=== PATIENT | female | born 1955 | race Caucasian/White ===

== ENCOUNTER → 2019-04-07 | Outpatient (REF) | payer OTHER ==
[2019-04-07 18:37] LABS: APPEARANCE, URINE CLEAR (CLEAR); BACTERIA, URINE AUTO NEGATIVE (NEGATIVE); BILIRUBIN, URINE AUTO NEGATIVE (NEGATIVE); BLOOD, URINE BLOOD NEGATIVE (NEGATIVE); COLOR, URINE YELLOW (YELLOW); GLUCOSE, URINE (UA) AUTO NEGATIVE (NEGATIVE); KETONE, URINE AUTO NEGATIVE (NEGATIVE); LEUKOCYTE ESTERASE, URINE AUTO NEGATIVE (NEGATIVE); MUCUS, URINE SMALL (NEGATIVE); NITRITE, URINE AUTO NEGATIVE (NEGATIVE); PROTEIN, URINE AUTO NEGATIVE (NEGATIVE); RBC, URINE AUTO 0 /HPF (0-3); SQUAMOUS EPITHELIAL CELL UR AU 1 /HPF (0-6); UROBILINOGEN, URINE AUTO 0.2 mg/dL (0.0-2.0); WBC, URINE AUTO 2 /HPF (0-3)
== END ==
LOC: M SMT 16:56
PROVIDERS: ATTEND Nurse Practitioner Women's Health
DX: R31.29 Other microscopic hematuria (principal)

== ENCOUNTER → 2019-10-27 | Outpatient (REF) | payer OTHER ==
[2019-10-27 17:39] LABS: APPEARANCE, URINE CLEAR (CLEAR); BACTERIA, URINE AUTO NEGATIVE (NEGATIVE); BILIRUBIN, URINE AUTO NEGATIVE (NEGATIVE); BLOOD, URINE BLOOD NEGATIVE (NEGATIVE); CALCIUM OXALATE CRYSTALS MODERATE; COLOR, URINE YELLOW (YELLOW); GLUCOSE, URINE (UA) AUTO NEGATIVE (NEGATIVE); KETONE, URINE AUTO NEGATIVE (NEGATIVE); LEUKOCYTE ESTERASE, URINE AUTO NEGATIVE (NEGATIVE); MUCUS, URINE SMALL (NEGATIVE); NITRITE, URINE AUTO NEGATIVE (NEGATIVE); PROTEIN, URINE AUTO NEGATIVE (NEGATIVE); RBC, URINE AUTO 8 /HPF (0-3); SPECIFIC GRAVITY URINE AUTO 1.021 (1.002-1.035); SQUAMOUS EPITHELIAL CELL UR AU 0 /HPF (0-6); UROBILINOGEN, URINE AUTO 0.2 mg/dL (0.0-2.0); WBC, URINE AUTO 2 /HPF (0-3)
== END ==
LOC: M SMT 15:17
PROVIDERS: ATTEND Nurse Practitioner Women's Health
DX: N39.0 Urinary tract infection, site not specified (principal)

== ENCOUNTER → 2020-04-19 | Outpatient (REF) | payer OTHER ==
[2020-04-29 17:08] LABS: CA Oxalate Dihy 90 % (.); Ca Ox Monohydrate 10 % (.); Size 7x4 mm (.)
== END ==
LOC: M SMT 15:31
PROVIDERS: ATTEND Nurse Practitioner Women's Health
DX: N20.0 Calculus of kidney (principal)

== ENCOUNTER → 2020-07-19 | Outpatient (CLI) | payer OTHER ==
--- NOTE | 2020-07-19 10:04 | REPPI ---
INDICATION: URETERAL CALCULUS COMPARISON: None. TECHNIQUE: Supine views of the abdomen and pelvis. FINDINGS: Bowel gas pattern is nonspecific and without obstruction or perforation. No organomegaly. Prior cholecystectomy. Calcifications in the pelvis consistent with phleboliths. Skeletal structures intact. No obvious urinary tract calcifications identified. IMPRESSION: 1. No obvious urinary tract calcifications appreciated. <Electronically signed by Sam Jefferson > 07/19/20 1000
== END ==
LOC: M PLAIMG 09:26
PROVIDERS: ATTEND Urology
DX: N20.1 Calculus of ureter (principal)

== ENCOUNTER 2020-07-20 17:46 | Day surgery (SDC) | payer OTHER ==
[~2020-07-20] VITALS: Ht 165.1 cm; Wt 79.1 kg
--- NOTE | 2020-07-20 18:28 | ED PDOC ---
Post-Departure Follow-Up pt not seen by ED provider. taken to OR by urology prior to ED provider exam. transfer from other facility. EPHRAIM ODELL [employer]IATE July 20, 2020 18:28
[2020-07-20] MEDS ORDERED: CONRAY-60 60% 50ML VIAL (Q9961) As Ordered ONE (18:29)
[2020-07-20] MEDS ORDERED: fentaNYL 100 MCG/2 ML INJECTION (J3010) As Ordered ONE (18:39)
--- NOTE | 2020-07-20 18:49 | SMCUROLCON ---
Urology Consultation General Date of Consultation 07/20/20 Reason For Consultation This patient is seen for Kidney Stones. History of Present Illness This is a 65 y/o F w/ a PMH significant for asthma, GERD, osteopenia, costochondritis, ALMA DELIA, HL, sarcoidosis, and kidney stones, presenting to the ER as a transfer from [facility] for intractable L sided pain from obstructing ureteral stones. She was originally seen at [facility] this past weekend and was diagnosed w/ b/l nonobstructing renal stones and 2 small obstructing distal L ureteral stones. Her pain improved and she thought she passed the stones. Today she noted that the pain returned and was very severe and in the L flank. She has had nausea but no vomiting. She denies f/c. Denies dysuria. A repeat CT A/P done today demonstrated the stones still present in her distal L ureter. Her recent urine culture was negative for infection. Past Medical History Medical History see HPI Surgical Hstory HEART CATH 2000 CHOLECYSTECTOMY LEFT SHOULDER SCOPE 06/2016 ABLASION LEFT LEG 01/22/2017 ABLASION RIGHT LEG 12/2016 TRIGGER FINGER RELEASE Allergies Allergies: Coded Allergies: etodolac (Verified Allergy, Severe, anaphylatic, 07/20/20) Sulfa (Sulfonamide Antibiotics) (Verified Allergy, Intermediate, hives, 07/20/20) acetaminophen (Verified Allergy, Intermediate, hives, 07/20/20) amoxicillin (Verified Allergy, Intermediate, hives, 07/20/20) aspartame (Verified Allergy, Intermediate, hives, 07/20/20) azithromycin (Verified Allergy, Intermediate, hives, 07/20/20) clavulanic acid (Verified Allergy, Intermediate, hives, 07/20/20) doxylamine (Verified Allergy, Intermediate, hives, 07/20/20) hydrocodone (Verified Allergy, Intermediate, hives, 07/20/20) indomethacin (Verified Allergy, Intermediate, hives, 07/20/20) moxifloxacin (Verified Allergy, Intermediate, hives, 07/20/20) pseudoephedrine (Verified Allergy, Intermediate, hives, 07/20/20) Review of Systems Constitutional: Denies: Fever, Chills, Sweats, Weakness, Malaise Pulmonary: Denies: Dyspnea, Cough Cardiovascular: Denies Chest Pain, Denies Palpitations Gastrointestinal: Reports: Nausea; Denies: Vomiting, Diarrhea, Constipation, Melena, Hematochezia, Other Sympto ms Genitourinary: Denies: Dysuria, Frequency, Incontinence Musculoskeletal: Reports: Back Pain (L flank pain) Neurological: Denies: Weakness, Numbness, Incoordination, Change in Speech Psych: Reports: Mood Normal Physical Examination General Exam: Alert, Cooperative, No Acute Distress ENT EXAM: Atraumatic Chest Exam: Normal air movement Heart Exam: Rate Normal Abdomen Exam: Soft Skin Exam: Nl turgor and temperature Neuro Exam: Normal Speech Psych Exam: Mental status NL, Mood NL Vital Signs/I&O Vital Signs Date Time Temp Pulse Resp B/P (MAP) Pulse Ox O2 Delivery O2 Flow Rate FiO2 07/20/20 17:47 97.3 74 18 150/73 (98) 96 Room Air Assessment This is a 65 y/o F w/ intractable pain from obstructing distal L ureteral stones. I reviewed her CT. She has b/l punctate renal stones and 2 approxim ately 5mm stones in her distal L ureter causing obstruction. I recommended that we take her to the OR now for cystoscopy, L ureteroscopy w/ laser lithotripsy, and L ureteral stent placement. After a discussion of the risks and benefits of the procedure, informed consent was signed. Plan - to OR now - ancef 2g IV OCOR - NPO - ok for discharge postop if pain is better ZAINAB HENDERSON MD July 20, 2020 18:07
[2020-07-20] MEDS ORDERED: ceFAZolin 2 GM/D5W 50 ML IV BAG (J0690 PER 500MG) As Ordered ONE (19:00)
[2020-07-20] MEDS ORDERED: ceFAZolin SOD 2 GM in IV 1 EA IV ONE (19:00)
[2020-07-20] MEDS ORDERED: MIDAZOLAM INJ 2MG/2ML VIAL (J2250 PER 1MG) As Ordered ONE (19:15)
[2020-07-20] MEDS ORDERED: KETOROLAC 60MG 2ML VIAL As Ordered ONE (19:19)
[2020-07-20] MEDS ORDERED: ACETAMINOPHEN 1000MG 100ML IV BTL (OFIRMEV) (J0131 PER 10MG) As Ordered ONE (19:19)
[2020-07-20] MEDS ORDERED: ONDANSETRON 4MG/2ML VIAL As Ordered ONE (19:19)
[2020-07-20] MEDS ORDERED: ePHEDrine SULFATE 25 MG/5 ML(5MG/ML) SYRINGE As Ordered ONE (19:19)
[2020-07-20] MEDS ORDERED: LIDOCAINE 2% 100MG/5ML SDV (FOR ANES.) As Ordered ONE (19:19)
[2020-07-20] MEDS ORDERED: propofoL 200 MG/20 ML VIAL As Ordered ONE (19:19)
[2020-07-20] MEDS ORDERED: dexameTHASONE 4 MG/ML 1ML VIAL (J1100 PER 1MG) As Ordered ONE (19:19)
[2020-07-20] MEDS ORDERED: ONDANSETRON 4MG/2ML VIAL IV PRN (19:50)
[2020-07-20] MEDS ORDERED: fentaNYL 100 MCG/2 ML INJECTION (J3010) IV PRN (19:50)
[2020-07-20] MEDS ORDERED: oxyCODONE 5MG TAB PO PRN (19:50)
[2020-07-20] MEDS ORDERED: LR 1,000 ML IV SCH (19:50)
[2020-07-20] MEDS ORDERED: oxyBUTYnin 5 MG TAB PO PRN (19:55)
[2020-07-20] MEDS ORDERED: PERCOCET 5MG/325MG TAB PO PRN (19:55)
--- NOTE | 2020-07-20 19:55 | REP ---
INDICATION: STONE. COMPARISON: Comparison radiograph July 19, 2020.. TECHNIQUE: Two views. 10 seconds of fluoroscopy time is reported. FINDINGS: A sequence of 2 last image hold fluoroscopically obtained spot radiographs of the abdomen document left ureteral cannulation, contrast injection, and stenting. IMPRESSION: Procedural imaging. <Electronically signed by Carmelo Rivas > 07/20/201950
[2020-07-20 21:00] VITALS: BP 140/72
--- NOTE | 2020-07-20 22:14 | RO ---
OPERATIVE NOTE DATE OF OPERATION: 07/20/2020 PREOPERATIVE DIAGNOSIS: Obstructing left ureteral stone. POSTOPERATIVE DIAGNOSIS: Obstructing left ureteral stone. PROCEDURE: Cystoscopy, left ureteroscopy with basket extraction of stones, left retrograde pyelogram with intraoperative interpretation of images, left ureteral stent placement. SURGEON: Da Aguilar MD SHOWER SCREEN INSTALLER: None. ANESTHESIA: General. OPERATIVE INDICATIONS: This is a 65-year-old female with severe intractable pain from obstructing distal left ureteral stones. She is brought to the operating room today for treatment. DESCRIPTION OF PROCEDURE: The patient was brought to the operating room and general anesthesia was induced. Prophylactic antibiotics were infused. She was placed in the dorsal lithotomy position and prepped and draped in the usual sterile fashion. A rigid cystoscope was inserted in the urethral meatus and advanced into the bladder. A guidewire was advanced up the left collecting system. I went up the left collecting system with a short semi-rigid ureteroscope and within the distal ureter, three stones were seen with two of them measuring around 5 mm in size and the outer one measuring around 2 mm in size. All these stones were removed using the basket. Once done, I examined the more proximal ureter and no additional stones were seen all the way up to the level of the kidney. The retrograde pyelogram was performed and notable for severe left hydroureteronephrosis with no extravasation. I then withdrew the ureteroscope and once again no additional stones were seen inside the ureter. I utilized the guidewire to advance a 6 Kisw[place]ili x 22-32 cm JJ ureteral stent up into the left collecting system. The wire was removed and there were adequate curls of the stent in the left renal pelvis and in the bladder. The bladder was emptied of all fluids and this marked the conclusion of the procedure. The patient was taken out of dorsal lithotomy position, awakened from anesthesia and transported to recovery room in stable condition. ESTIMATED BLOOD LOSS: 5 mL COMPLICATIONS: None. SPECIMENS: Kidney stones. PLAN: The patient will follow-up in urology clinic in approximately 2-3 weeks for stent removal. MARIYA
== END 2020-07-20 21:00 | disposition home or self-care (01) ==
LOC: M ED 17:46 → M SDC 18:10
PROVIDERS: ATTEND Urology
DX: N20.1 Calculus of ureter (principal); K21.9 Gastro-esophageal reflux disease without esophagitis; J45.909 Unspecified asthma, uncomplicated; G47.30 Sleep apnea, unspecified; Z88.2 Allergy status to sulfonamides; Z88.5 Allergy status to narcotic agent; Z88.0 Allergy status to penicillin; Z88.8 Allergy status to other drugs, medicaments and biological substances; Z87.820 Personal history of traumatic brain injury
CPT/HCPCS: 52332; 52352; 74420; 82365; 88300; 99284; C1769; C1894; C2617; J0131; J0690; J1100; J1885; J2250; J2405; J3010; Q9961

== ENCOUNTER → 2021-04-24 | Outpatient (REF) | payer OTHER ==
[~2021-04-24] MED LIST: ACET1TAB16 PO; ADV500INH INH; CBD OIL; D31000TA2 PO; FLOM0.4C39 PO; LORA-674 PO; MONT10TA97 PO; PANT40TA29 PO
== END ==
LOC: M SMT 12:50
PROVIDERS: ATTEND Nurse Practitioner Women's Health
DX: N20.0 Calculus of kidney (principal)

== ENCOUNTER → 2022-07-18 | Day surgery (SDC) | payer MEDICARE ==
[~2022-07-18] VITALS: Ht 165.1 cm; Wt 77.0 kg
[~2022-07-18] MED LIST changes: -ACET1TAB16 PO; +ACET300T48 PO; -D31000TA2 PO; +ISOVUE-300 61% 100ML VIAL As Ordered ONE; +KETOROLAC 60MG 2ML VIAL As Ordered ONE; +LIDOCAINE 2% 100MG/5ML SDV (FOR ANES.) As Ordered ONE; +LevoFLOXacin IV 500 MG in IV 1 EA IV ONE; +MIDAZOLAM INJ 2MG/2ML VIAL As Ordered ONE; +ONDANSETRON 4MG 2ML VIAL As Ordered ONE; +ONDANSETRON 4MG 2ML VIAL IV ONE; +OXYB5TAB10 PO; +VITA100093 PO; +fentaNYL 100 MCG/2 ML INJECTION As Ordered ONE; +propofoL 200 MG/20 ML VIAL As Ordered ONE
[2022-07-18 18:08] VITALS: BP 165/84
[2022-07-26 18:07] LABS: CA Oxalate Dihy 90 % (.); Ca Ox Monohydrate 10 % (.); Size 3x3 mm (.)
== END | disposition home or self-care (01) ==
LOC: M SDC 12:05
PROVIDERS: ATTEND Urology
DX: N13.2 Hydronephrosis with renal and ureteral calculous obstruction (principal); J45.909 Unspecified asthma, uncomplicated; K21.9 Gastro-esophageal reflux disease without esophagitis; G47.33 Obstructive sleep apnea (adult) (pediatric); Z79.51 Long term (current) use of inhaled steroids; Z79.899 Other long term (current) drug therapy; Z88.2 Allergy status to sulfonamides; Z88.5 Allergy status to narcotic agent; Z88.8 Allergy status to other drugs, medicaments and biological substances; Z88.0 Allergy status to penicillin
CPT/HCPCS: 52356; 74420; 82365; C1769; C2617; J1100; J1956; J2250; J2405; J3010; Q9967

== ENCOUNTER 2024-07-09 10:06 | Day surgery (SDC) | payer MEDICARE ==
[~2024-07-09] VITALS: Ht 165.1 cm; Wt 78.8 kg
[~2024-07-09 10:06] MED LIST changes: -ADV500INH INH; +ADVA1AER10 INH; +ADVA1AER9; +EPIN0.3I11; -FLOM0.4C39 PO; -ISOVUE-300 61% 100ML VIAL As Ordered ONE; -KETOROLAC 60MG 2ML VIAL As Ordered ONE; -LIDOCAINE 2% 100MG/5ML SDV (FOR ANES.) As Ordered ONE; +LISI10TA22 PO; +LORA-1041 PO; -LORA-674 PO; +LOSA25TA13 PO; -LevoFLOXacin IV 500 MG in IV 1 EA IV ONE; +MECL-136 PO; -MIDAZOLAM INJ 2MG/2ML VIAL As Ordered ONE; -ONDANSETRON 4MG 2ML VIAL As Ordered ONE; -ONDANSETRON 4MG 2ML VIAL IV ONE; -OXYB5TAB10 PO; +OXYB5TAB14 PO; +TAMS-18 PO; +VENTAER INH; -fentaNYL 100 MCG/2 ML INJECTION As Ordered ONE; -propofoL 200 MG/20 ML VIAL As Ordered ONE
[2024-07-09] MEDS ORDERED: propofoL 200 MG/20 ML VIAL As Ordered ONE (10:40)
[2024-07-09] MEDS ORDERED: fentaNYL 100 MCG/2 ML INJECTION As Ordered ONE (10:41)
[2024-07-09] MEDS ORDERED: LIDOCAINE 2% 100MG/5ML SDV (FOR ANES.) As Ordered ONE (10:41)
[2024-07-09] MEDS ORDERED: ONDANSETRON 4MG 2ML VIAL As Ordered ONE (10:41)
[2024-07-09] MEDS ORDERED: MIDAZOLAM INJ 2MG/2ML VIAL As Ordered ONE (10:41)
[2024-07-09] MEDS: ceFAZolin SODIUM 2 GM VIAL As Ordered ONE (11:14)
[2024-07-09] MEDS: ISOVUE-300 61% 100ML VIAL As Ordered ONE (11:27)
[2024-07-09] MEDS: ceFAZolin SOD 2 GM IV ONCE IV ONE (11:27)
[2024-07-09] MEDS ORDERED: ePHEDrine SULFATE 25 MG/5 ML(5MG/ML) SYRINGE As Ordered ONE (11:28)
[2024-07-09] MEDS ORDERED: fentaNYL 100 MCG/2 ML INJECTION IV PRN (13:00)
[2024-07-09] MEDS ORDERED: LR 1,000 ML IV SCH (13:00)
[2024-07-09] MEDS: ONDANSETRON 4MG 2ML VIAL IV PRN (13:03)
[2024-07-09 14:17] VITALS: BP 162/67; TEMP 97.8; O2SAT 99
== END 2024-07-09 14:30 | disposition home or self-care (01) ==
LOC: M SDC 10:06
PROVIDERS: ATTEND Urology
DX: N20.0 Calculus of kidney (principal); N13.2 Hydronephrosis with renal and ureteral calculous obstruction; I10 Essential (primary) hypertension; E78.5 Hyperlipidemia, unspecified; E04.0 Nontoxic diffuse goiter; K76.0 Fatty (change of) liver, not elsewhere classified; K21.9 Gastro-esophageal reflux disease without esophagitis; G47.33 Obstructive sleep apnea (adult) (pediatric); J45.909 Unspecified asthma, uncomplicated; Z79.51 Long term (current) use of inhaled steroids; Z79.899 Other long term (current) drug therapy; Z88.0 Allergy status to penicillin; Z88.2 Allergy status to sulfonamides; Z88.8 Allergy status to other drugs, medicaments and biological substances; Z88.1 Allergy status to other antibiotic agents
CPT/HCPCS: 52356; 76000; 82365; C1769; C1894; C2617; J0690; J1100; J2250; J2405; J3010; Q9967

== ENCOUNTER → 2025-01-12 | Outpatient (CLI) | payer MEDICARE | LOC: M WHC 11:07 | PROVIDERS: ATTEND Student in an Organized Health Care Education/Training Program | DX: N83.291 Other ovarian cyst, right side (principal) ==